=== PATIENT | female | born 1975 | race African-American/Black ===

== ENCOUNTER 2018-08-29 21:09 | Emergency (ER) | payer SELFPAY ==
[~2018-08-29] VITALS: Ht 157.5 cm; Wt 95.5 kg
[2018-08-29 21:16] VITALS: Ht 157.5 cm; Wt 95.5 kg
[2018-08-29 21:52] LABS: BASOPHILS 0.1 % (0-2); EOSINOPHILS 0.3 % (0-7); HEMATOCRIT 39.1 % (36.0-48.0); HEMOGLOBIN 12.7 g/dL (12-16); IMMATURE GRANULOCYTES 0.1 % (0-5); LYMPHOCYTES 30.7 % (15-50); MCHC 32.5 g/dL (31.0-37.0); MCV 86.1 fL (80.0-100.0); MEAN PLATELET VOLUME 9.2 fL (7.4-10.4); NEUTROPHILS 61.8 % (40-80); PLATELET COUNT 289 10x3/uL (130-400); RBC 4.54 10x6/uL (4.00-5.40); RDW 13.3 % (11.5-14.5); WBC 8.6 10x3/uL (4.8-10.8)
[2018-08-29 21:55] LABS: APPEARANCE CLEAR (CLEAR); BILIRUBIN NEGATIVE (NEGATIVE); COLOR YELLOW (YELLOW); GLUCOSE NEGATIVE (NEGATIVE); KETONE NEGATIVE (NEGATIVE); NITRITE NEGATIVE (NEGATIVE); PROTEIN NEGATIVE (NEGATIVE); UROBILINOGEN NORMAL (NORMAL)
[2018-08-29 21:59] LABS: EPITHELIAL CELLS 0-5 /hpf (0-5); RED CELLS - URINE 25-50 /hpf (0-5)
[2018-08-29 22:00] LABS: BACTERIA FEW /hpf (NONE SEEN)
[2018-08-29 22:07] LABS: HCG SERUM NEGATIVE (NEGATIVE)
[2018-08-29 22:08] LABS: ALKALINE PHOSPHATASE 61 U/L (46-116); ALT (SGPT) 11 U/L (10-68); CALC OSMOLALITY 273 mosm/kg (275-300); CALCIUM 8.5 mg/dL (8.5-10.1); CARBON DIOXIDE 31.2 mmol/L (21.0-32.0); CHLORIDE - SERUM 103 mmol/L (98-107); CREATININE - SERUM 0.8 mg/dL (0.6-1.3); GLUCOSE 92 mg/dL (74-106); POTASSIUM - SERUM 3.6 mmol/L (3.5-5.1); PROTEIN - SERUM 6.9 g/dL (6.4-8.2); SODIUM 138 mmol/L (136-145); UREA NITROGEN 7 mg/dL (7-18); eGFR NON AFRICAN AMERICAN 84 mL/min (90-120)
[2018-08-29] MEDS ORDERED: MACROBID100 MG PO (23:29)
[2018-08-30 00:02] VITALS: BP 138/81
== END 2018-08-30 00:02 | disposition home or self-care (01) ==
LOC: D.ER 21:09
PROVIDERS: Emergency Medicine
DX: N30.90 Cystitis, unspecified without hematuria (principal); N92.1 Excessive and frequent menstruation with irregular cycle; E28.2 Polycystic ovarian syndrome

== ENCOUNTER 2019-01-08 16:39 | Emergency (ER) | payer SELFPAY ==
[~2019-01-08 16:39] MED LIST: MACROBID100 MG PO
[2019-01-08 16:42] VITALS: BP 123/79; BMI 38.1
== END 2019-01-08 17:06 | disposition left against medical advice (07) ==
LOC: D.ER 16:39
DX: R51 Headache (principal); R42 Dizziness and giddiness

== ENCOUNTER → 2020-03-14 13:41 | Outpatient (CLI) | payer BC, OTHER | END | disposition home or self-care (01) | LOC: D.MAMMO 02-28 09:30 | PROVIDERS: ATTEND Emergency Medicine | DX: Z12.31 Encounter for screening mammogram for malignant neoplasm of breast (principal) ==

== ENCOUNTER 2020-03-22 17:46 | Outpatient (CLI) | payer BC, OTHER | END 2020-03-22 23:59 | disposition home or self-care (01) | LOC: D.MAMMO 17:46 | PROVIDERS: ATTEND Emergency Medicine | DX: R92.8 Other abnormal and inconclusive findings on diagnostic imaging of breast (principal) ==

== ENCOUNTER 2020-05-06 19:06 | Emergency (ER) | payer BC, OTHER ==
[~2020-05-06] VITALS: Ht 157.5 cm; Wt 82.7 kg
[2020-05-06 19:23] VITALS: BP 122/88; Ht 157.5 cm; Wt 82.7 kg
[2020-05-06] MEDS ORDERED: CLEOCIN HCL300 MG (19:27)
[2020-05-06 22:22] LABS: BASOPHILS 0.5 % (0-2); EOSINOPHILS 2.3 % (0-7); HEMATOCRIT 31.3 % (36.0-48.0); HEMOGLOBIN 9.5 g/dL (12-16); IMMATURE GRANULOCYTES 0.2 % (0-5); MCH 25.4 pg (26.0-34.0); MCHC 30.4 g/dL (31.0-37.0); MCV 83.7 fL (80.0-100.0); MEAN PLATELET VOLUME 8.6 fL (7.4-10.4); MONOCYTES 8.4 % (2-11); NEUTROPHILS 40.6 % (40-80); PLATELET COUNT 420 10x3/uL (130-400); RBC 3.74 10x6/uL (4.00-5.40); RDW 14.7 % (11.5-14.5); WBC 4.4 10x3/uL (4.8-10.8)
[2020-05-06 22:34] LABS: CALC OSMOLALITY 269 mosm/kg (275-300); CALCIUM 8.5 mg/dL (8.5-10.1); CARBON DIOXIDE 29.9 mmol/L (21.0-32.0); CHLORIDE - SERUM 103 mmol/L (98-107); CREATININE - SERUM 0.8 mg/dL (0.6-1.3); GLUCOSE 89 mg/dL (74-106); SODIUM 136 mmol/L (136-145); UREA NITROGEN 9 mg/dL (7-18); eGFR NON AFRICAN AMERICAN 83 mL/min (90-120)
[2020-05-06 22:41] LABS: ALBUMIN 2.9 g/dL (3.4-5.0); ALKALINE PHOSPHATASE 59 U/L (30-120); ALT (SGPT) 10 U/L (10-68); BILIRUBIN - TOTAL 0.13 mg/dL (0.2-1.3); PROTEIN - SERUM 7.2 g/dL (6.4-8.2)
[2020-05-06] MEDS ORDERED: MUPIROCIN22 GM TOPICAL (23:09)
== END 2020-05-07 00:12 | disposition home or self-care (01) ==
LOC: D.ER 19:06
PROVIDERS: Emergency Medicine
DX: T81.41XA Infection following a procedure, superficial incisional surgical site, initial encounter (principal)